=== PATIENT | female | born 1995 | race Caucasian/White ===

== ENCOUNTER 2020-08-26 16:06 | Inpatient (IN) | payer OTHER ==
[2020-08-26] VITALS (22 sets, daily range): BP systolic 118–124; BP diastolic 80–84; PULSE 112–121; O2SAT 95–100
[~2020-08-26] VITALS: Ht 162.6 cm; Wt 53.7 kg
[2020-08-26 17:05] LABS: BASO % 0.3 % (0.0-2.0); EOS % 0.4 % (0-4.0); GRAN # 5.8 (1.4-6.5); GRAN % 60.9 % (42.2-75.2); HEMATOCRIT 48.6 % (37.0-47.0); LYMPH # 3.1 (1.2-3.4); LYMPH % 32.3 % (20.0-51.0); MEAN CELL VOLUME 87 fl (80.0-100.0); MEAN CORPUSCULAR HEMOGLOBIN 29 pg (27.0-31.0); MEAN CORPUSCULAR HGB CONC 33 g/dl (33.0-37.0); MEAN PLATELET VOLUME 9.6 fl (7.4-10.4); MONO # 0.6 (0.1-0.6); MONO % 5.9 % (1.7-9.3); PLATELET COUNT 399 K/mm3 (130-400); REDCELL DISTRIBUTION WIDTH-CV 12.2 % (11.5-14.5)
[2020-08-26 17:13] LABS: ACETAMINOPHEN 23 ug/mL (10-30); ALANINE AMINOTRANSFERASE 60 U/L (4-34); ALBUMIN 4.6 gm/dL (3.5-5.0); ALCOHOL(ethanol),MEDICAL 166 mg/dL; ALKALINE PHOSPHATASE 77 U/L (50-136); ANION GAP 20 mmol/L (7-16); AST,SGOT 57 U/L (15-37); BILIRUBIN,TOTAL 0.8 mg/dL (0.0-1.0); BLOOD UREA NITROGEN 4 mg/dL (7-17); CALCIUM 9.2 mg/dL (8.4-10.2); CARBON DIOXIDE 17 mmol/L (22-30); CHLORIDE 106 mmol/L (98-107); CREATININE, serum 0.71 (0.52-1.25); GLUCOSE 89 mg/dL (74-106); POTASSIUM 3.6 mmol/L (3.4-5.0); SODIUM 143 mmol/L (137-145); TOTAL PROTEIN 9.4 gm/dL (6.4-8.2)
[2020-08-26 17:15] LABS: SALICYLATE < 1.0 mg/dL
[2020-08-26 17:18] LABS: TRICYCLIC ANTIDEPRESS URINE NEGATIVE
[2020-08-26 19:16] LABS: PROTHROMBIN TIME 10.7 SECONDS (9.7-12.8)
--- NOTE | 2020-08-26 19:33 | NUR ---
Received report from MACKENZIE Frost in the ED. Awaiting patients arrival.
--- NOTE | 2020-08-26 19:49 | NUR ---
Patient arrived to unit via stretcher. Patient arrived on room air with VSS with HR in 130-150s when agitated. Patient appears very tearful and mumbles when answering questions and is not able to answers questions appropriately but is able to follow commands. Patient arrived on acetylcystine running into peripheral IV in left hand. ER had previously sent all belongings to security. Will resume care at this time.
--- NOTE | 2020-08-26 20:30 | NUR ---
Patient had episode of desatting into the low 80s and occassionally turning purple in the face. 2L via NC administered to patient and patient sats back in the mid 90s. Patient also experiencing episodes of snoring while sleeping. Patient propped up with pillows and HOB increased to 45 degrees. BRAIN Celis called and notified of episode of desating and patient being put on O2. Received no new orders at this time. BRAIN stated to consult Dr. Crawley and notify YURIDIA to also follow case. BRAIN stated she does not want ativan ordered at this time d/t episode of desatting into the 50s in ER. BRAIN stated she was okay with precedex if dehydrogenation operator cleared the order.
[2020-08-26 20:58] LABS: ARTERIAL BLD GAS O2 SATURATION 98.7 % (92-100); ARTERIAL BLD GAS TCO2 CT 23.3; ARTERIAL BLOOD GAS BASE EXCESS -2.7 (-2-2); ARTERIAL BLOOD GAS HCO3 22.1 meq/L (22-26); ARTERIAL BLOOD GAS PCO2 38.8 mmHg (35-45); ARTERIAL BLOOD GAS pH 7.37 (7.35-7.45)
[2020-08-26 20:59] LABS: ARTERIAL BLOOD GAS PO2 127.1 mmHg (80-100)
[2020-08-26 21:32] LABS: ALANINE AMINOTRANSFERASE 54 U/L (4-34); ALBUMIN 3.6 gm/dL (3.5-5.0); ALKALINE PHOSPHATASE < 20 U/L (50-136); ANION GAP 10 mmol/L (7-16); AST,SGOT 38 U/L (15-37); BILIRUBIN,TOTAL 0.3 mg/dL (0.0-1.0); BLOOD UREA NITROGEN 3 mg/dL (7-17); CALCIUM 8.1 mg/dL (8.4-10.2); CARBON DIOXIDE 22 mmol/L (22-30); CHLORIDE 107 mmol/L (98-107); CREATININE, serum 0.45 (0.52-1.25); GLUCOSE 81 mg/dL (74-106); POTASSIUM 3.8 mmol/L (3.4-5.0); SODIUM 138 mmol/L (137-145)
--- NOTE | 2020-08-26 21:35 | NUR ---
Nurse notified YURIDIA of patient situation and episodes of turning purple in the face and desatting and relayed ABG results and spoke to Dr. Clifford who stated to continue to monitor patient at this time and check in with poison control for any additional meds to help with agitation. Nurse called Dr. Crawley and notified of patient status and situation. Dr. Crawley stated he would come in to assess the patient.
--- NOTE | 2020-08-26 21:57 | NUR ---
Dr. Crawley at bedside assessing patient.
--- NOTE | 2020-08-26 22:00 | NUR ---
Nurse spoke with Dr. Crawley and received orders for ativan and precedex. Precedex to be started if ativan not effective.
--- NOTE | 2020-08-26 23:50 | NUR ---
Received call from poision control asking for update on patient status. Nurse gave brief report on patient status. Poison control stated they would call throughout the night and following day for updates, also stated to call if there were any concerns or questions related to meds.
[2020-08-27] VITALS (7 sets, daily range): BP systolic 97–1110; BP diastolic 57–92; PULSE 71–108; TEMP 97.8–98.7
--- NOTE | 2020-08-27 01:30 | NUR ---
Spoke with patient , Ayaz, gave brief update on patient status as well as patient privacy code. compliant with patient care and stated he understood visitor policy for patient and would call back with any other questions or concerns.
--- NOTE | 2020-08-27 05:37 | NUR ---
Spoke with patient mom, Brittani, who gave privacy password. Gave update on patient status. Mom compliant with care and understood visitor policy. Stated she would call later throughout the day.
[2020-08-27 07:11] LABS: COLLECTION METHOD CLEAN CATCH
[2020-08-27 07:18] LABS: MUCOUS Present /lpf; PH 6 (5-8); URINE APPEARANCE Hazy; URINE BACTERIA None Seen /hpf; URINE BILIRUBIN Negative (NEGATIVE); URINE BLOOD 3+ (NEGATIVE); URINE COLOR Yellow; URINE GLUCOSE 2+ (NEGATIVE); URINE KETONE 2+ (NEGATIVE); URINE LEUKOCYTE ESTERASE 1+ (NEGATIVE); URINE NITRATE Negative (NEGATIVE); URINE PROTEIN(semi-quant) Negative (NEGATIVE); URINE RBC >50 /hpf; URINE UROBILINOGEN Negative (NEGATIVE)
[2020-08-27 07:52] LABS: BASO % 0.3 % (0.0-2.0); EOS # 0.1 (0.0-0.7); EOS % 0.9 % (0-4.0); GRAN # 8.1 (1.4-6.5); HEMATOCRIT 40.3 % (37.0-47.0); LYMPH # 2.3 (1.2-3.4); LYMPH % 20.4 % (20.0-51.0); MEAN CELL VOLUME 88 fl (80.0-100.0); MEAN CORPUSCULAR HEMOGLOBIN 29 pg (27.0-31.0); MEAN CORPUSCULAR HGB CONC 33 g/dl (33.0-37.0); MEAN PLATELET VOLUME 9.4 fl (7.4-10.4); MONO # 0.7 (0.1-0.6); MONO % 6.1 % (1.7-9.3); PLATELET COUNT 335 K/mm3 (130-400); RED BLOOD COUNT 4.57 M/mm3 (4.10-5.30); REDCELL DISTRIBUTION WIDTH-CV 12.3 % (11.5-14.5)
[2020-08-27 07:53] LABS: HEMOGLOBIN 13.3 g/dl (12.5-16.0)
[2020-08-27 08:14] LABS: ALBUMIN 3.1 gm/dL (3.5-5.0); BILIRUBIN,TOTAL 0.8 mg/dL (0.0-1.0); CALCIUM 8.2 mg/dL (8.4-10.2); CREATININE, serum 0.56 (0.52-1.25); POTASSIUM 3.9 mmol/L (3.4-5.0); TOTAL PROTEIN 6.1 gm/dL (6.4-8.2)
--- NOTE | 2020-08-27 10:38 | NUR ---
The patient was admitted for a suicide attempt/overdose. Cheese Weigher staffed with the patient's nurse. Nurse reports Dr. Crawley medically cleared the patient. Audrey is doing a screen via video at this time.
--- NOTE | 2020-08-27 11:00 | NUR ---
[facility] SCREENS PATIENT AT THIS TIME AND APPROVES HER FOR SAFETY PLAN TO DISCHARGE HOME WITH MOTHER AND . DR. CAMARA NOTIFIED.
--- NOTE | 2020-08-27 11:03 | NUR ---
Director [employer] staffed with the patient's nurse. The patient was cleared with Audrey to go home with a safety plan. Audrey staff to have a follow up phone call with the patient on 08/28. Audrey to fax the safety plan, the patient to sign the safety plan then it will be faxed back to Audrey. aboriginal education worker coordinator met with the patient to complete intake. The patient lives in [place] with her Ayaz, no children. The patient denies DME use and is independent with ADLs. The patient's PCP is Dr. Conrad with [facility] and patient receives medications from [facility]. The patient does not have advanced directives and was not interested in DPOA-HC form. The patient plans to return home with a safety plan in place. Ayaz will provide transportation. PRASHANTH discussed outpatient talk therapy with the patient. The [facility]. The patient was supposed to have an appointment on 08/26. The patient states she will set up an appointment herself. PRASHANTH discussed returning home. The patient understands that she can return to this hospital or the Crisis [facility], if she needs to. Director [employer] attended clinical rounds with the team. The patient to tentatively discharge home today, 08/27. Discharge disposition: Home
--- NOTE | 2020-08-27 11:30 | NUR ---
PATIENT'S MOTHER AND ARRIVE SEPARATELY TO VISIT PATIENT. VISITORS ALLOWED SINCE SHE IS NOW CLEARED BY PSYCH
--- NOTE | 2020-08-27 12:53 | NUR ---
DISCHARGE PACKET AND SAFETY PLAN REVIEWED WITH PATIENT, , AND MOTHER. FOLLOW UP INFORMATION GIVEN FOR PSYCHIATRY APPT WITH DR. LONG.
== END 2020-08-27 12:55 | disposition home or self-care (01) | DRG 918 ==
LOC: COL.ER 16:06 → ICU 17:54
PROVIDERS: Emergency Medicine; Physician Assistant; ADMIT Student in an Organized Health Care Education/Training Program
DX: T40.602A Poisoning by unspecified narcotics, intentional self-harm, initial encounter (principal); E87.2 Acidosis; G93.40 Encephalopathy, unspecified; T45.0X2A Poisoning by antiallergic and antiemetic drugs, intentional self-harm, initial encounter
CPT/HCPCS: 99223-AI; 99239; J0132; J2060; J2405; J7030; J7070